=== PATIENT | female | born 1995 | race Caucasian/White ===

== ENCOUNTER 2022-09-09 10:15 | Emergency (ER) | payer BC ==
[2022-09-09 10:24] VITALS: BP 117/89; PULSE 88; RESP 16; TEMP 98; BMI 25.0
[2022-09-09 11:08] LABS: HEMATOCRIT 38.5 % (32.4-45.2); HEMOGLOBIN 13.4 G/dL (10.7-15.3); MCH 31.3 pg (25.7-33.7); MCHC 34.7 g/dl (32.0-36.0); MEAN CELL VOLUME 90.3 fl (80-96); MEAN PLT VOLUME 6.8 fl (7.5-11.1); PLATELET COUNT 306.1 10^3/uL (134-434); RBC 4.26 10^6/uL (3.60-5.2); RDW 13.8 % (11.6-15.6); WHITE BLOOD COUNT 8.7 10^3/uL (4.0-10.8)
[2022-09-09 11:15] LABS: ALBUMIN 4.1 g/dl (3.4-5.0); BILIRUBIN,TOTAL 0.7 mg/dl (0.2-1); CALCIUM 9.1 mg/dl (8.5-10); CREATININE 0.7 mg/dl (0.55-1.3); TOT PROT 6.5 g/dl (6.4-8.2)
[2022-09-09 11:19] LABS: PLATELET ESTIMATE ADEQUATE
== END 2022-09-09 11:45 | disposition home or self-care (01) ==
LOC: FER 10:15
DX: K62.5 Hemorrhage of anus and rectum (principal)
CPT/HCPCS: 36415; 80053; 85027; 99283-25